=== PATIENT | female | born 1940 | race Caucasian/White ===

== ENCOUNTER 2024-01-07 15:50 | Emergency (ER) | payer OTHER, SELFPAY ==
--- NOTE | ~2024-01-07 | US_ITS ---
EXAMINATION: US VENOUS ULTRASOUND WITH DOPPLER LOWER EXTREMITY, RIGHT CLINICAL INFORMATION: Pain and swelling COMPARISON: None available. TECHNIQUE: Ultrasound of the deep veins is performed from the hip to the calf with compression sonography and color and pulse Doppler assessment. Spectral analysis with color-flow imaging is performed. FINDINGS: There is normal venous compression and respiratory variation and augmented flow. The visualized common femoral vein, superficial femoral vein, profunda femoral vein, popliteal vein, and the trifurcation region shows no evidence of deep venous thrombosis. There is no significant popliteal fossa cyst. If the patient's symptoms persist, followup ultrasound in 5 days 7 days might be of value to exclude proximal propagation from a non-visualized calf vein. US/US venous duplex LE RT IMPRESSION: No DVT demonstrated in the right lower extremity.
--- NOTE | ~2024-01-07 | XR_ITS ---
EXAMINATION: XR KNEE, RIGHT CLINICAL INFORMATION: Pain. COMPARISON: None available. TECHNIQUE: AP and lateral views of the right knee. FINDINGS: There is bony demineralization. The lateral and medial joint space compartments are well-maintained and show moderate peripheral osteophyte formation. There is marked narrowing of the patellofemoral compartment, with exuberant peripheral osteophyte formation in particular superiorly. No fracture, dislocation or significant joint effusion is seen. There is no foreign body. XR/XR knee RT 2V IMPRESSION: 1. There is tricompartment osteoarthritic change of the right knee, most pronounced of the patellofemoral compartment, where degenerative change is marked. 2. No fracture, dislocation or significant joint effusion is seen.
[2024-01-07 16:16] VITALS: BP 179/81; PULSE 101; RESP 16; TEMP 36.2; O2SAT 99; BMI 30.2
--- NOTE | 2024-01-07 16:19 | ED.GENADULT ---
HPI - General Adult General Chief complaint: Extremity Injury, Lower Stated complaint: knee pain Time Seen by Provider: 01/07/24 16:37 Source: patient Mode of arrival: ambulatory Limitations: no limitations History of Present Illness HPI narrative: 83-year-old female history of osteoarthritis of bilateral knees presents to the emergency department complaints of acute on chronic right-sided knee pain, patient reports pain has been going on for years however over the past 2 days the right knee has been more and more painful, patient reports she last had a cortisone injection to the right knee in July of 2023, she states she thinks they did it wrong, usually injections provide her more relief however this 1 did not seem to last and now she is very uncomfortable. Her knee crack every time she bends her knee. She reports pain is worse with movement better at rest. No associated trauma. Denies fevers, chills, numbness, tingling. Patient taking Tylenol without relief. Patient is ambulatory without difficulty. Related Data Home Medications ?Medication ?Instructions ?Recorded ?Confirmed atorvastatin 10 mg tablet 10 mg PO DAILY 05/15/21 levothyroxine 88 mcg tablet 88 mcg PO DAILY 05/15/21 lisinopril 5 mg tablet 5 mg PO DAILY 05/15/21 losartan 25 mg tablet 25 mg PO DAILY 05/15/21 losartan 50 mg tablet 50 mg PO DAILY 05/15/21 Previous Rx's ?Medication ?Instructions ?Recorded levofloxacin 500 mg tablet 500 mg PO DAILY #10 tabs 05/15/21 doxycycline hyclate 100 mg tablet 100 mg PO BID 7 days #14 tabs 08/30/21 acetaminophen 325 mg capsule 650 mg (2 x 325 mg) PO Q4H PRN 01/07/24 (Tylenol) pain #30 caps ibuprofen 600 mg tablet 600 mg PO Q6H PRN fever or pain 01/07/24 #30 tabs prednisone 20 mg tablet 40 mg (2 x 20 mg) PO DAILY 5 days 01/07/24 #10 tabs Allergies Allergy/AdvReac Type Severity Reaction Status Date / Time cephalexin [From Keflex] Allergy Rash Verified 01/07/24 16:19 Review of Systems Review of Systems: Yes all other systems are reviewed and are negative PMFSH Past Medical History Attestation statement: The following information was validated with the patient. Source: old records reviewed and nursing notes reviewed Social History Social History Patient Tobacco Use Status: Never used Tobacco Advance Directives: No Advance Directives Information Provided: No Do you have a plan to hurt others: No Plan Physical Exam ED Vital Signs: Vital Signs - 24 hr 01/07/24 16:16 Temperature 97.1 F Pulse Rate 101 H Respiratory Rate 16 Blood Pressure 179/81 H Pulse Oximetry 99 Oxygen Delivery Method Room Air BMI result Body Mass Index 30.2 vss Appearance: Alert.? Oriented X3.? No acute distress.? Head: Normocephalic, atraumatic, no step-offs or deformities Eyes: Pupils equal, round and reactive to light.? CVS: Normal heart rate and rhythm.? Pulses normal.? Respiratory: No respiratory distress.? Breath sounds normal.? Skin: Skin warm and dry.? Normal skin color.? Normal skin turgor.? Extremities: No lower extremity edema.? No calf ttp. 5/5 strength to bilateral upper and lower extremities + bilateral knees with full range of motion slight discomfort with rom of r knee. slight knee effusion overlying right knee. No overlying skin changes no erythema or warmth bilaterally. Patient ambulatory with steady gait normal coordination. 2+ popliteal pulses, 2+ dorsalis pedis, anterior tibialis and posterior tibialis pulses equal bilateral. Normal sensation distally. Back: No midline tenderness, no C-spine tenderness, full range of motion, no CVA tenderness bilaterally Neuro: Oriented X 3.? No motor deficit.? No sensory deficit. CN 2-12 intact Course Course Course Narrative: RME- 83-year-old female presents for evaluation of pain to her right knee. She describes the pain as burning in nature. She has pain that starts in her right lower back that radiates down her right leg. Plan for ultrasound to rule out DVT. Reevaluation(s) Reevaluation #1: Ultrasound no DVT demonstrated on right lower extremity. X-ray pending. This is likely osteoarthritis. Abdirizak wrap applied. Patient to be discharged home with pain control, prednisone, orthopedic follow-up. Educated patient on diagnosis and treatment plan, answered all question, patient verbalizes understanding. At this time patient will be discharged home, advised to return with new or worsening symptoms. Educated on worrisome signs and symptoms and when to return. At this time I feel comfortable discharge home. Time: 18:22 Medical Decision Making Medical Decision Making [facility] Narrative: 1820 83 year old female presents w/ r knee pain X years worsening over the past few months . PE- + bilateral knees with full range of motion slight discomfort with rom of r knee. slight knee effusion overlying right knee. No overlying skin changes no erythema or warmth bilaterally. Patient ambulatory with steady gait normal coordination. 2+ popliteal pulses, 2+ dorsalis pedis, anterior tibialis and posterior tibialis pulses equal bilateral. Normal sensation distally. History and physical exam concerning for osteoarthritis versus inflammatory arthritis. Unlikely arterial or venous occlusion. Unlikely acute threat to Benjamin, neurovascular compromise. Unlikely fracture, dislocation no associated trauma or falls. No signs of ischemic limb Plan will apply an Abdirizak wrap, give ibuprofen and Tylenol. Differential Diagnosis Differential Diagnoses: The differential diagnosis associated with the presentation includes History and physical exam concerning for osteoarthritis versus inflammatory arthritis. Unlikely arterial or venous occlusion. Unlikely acute threat to Benjamin, neurovascular compromise. Unlikely fracture, dislocation no associated trauma or falls. No signs of ischemic limb Admission/Observation Consideration of admission/observation: Escalation of care including admission/observation considered No indication Independent Interpretation I performed an independent interpretation of an: Plain X-Ray (pending) and Ultrasound ( US/US venous duplex LE RT IMPRESSION: No DVT demonstrated in the right lower extremity.) Radiology Impression Discussion of test interpretation with radiology: I have reviewed the radiologist's reading. Prescription Management I considered prescription management with: Pain Medication Chronic Conditions Patient?s care impacted by: Other (osteoarthritis ) Discharge Plan Discharge Clinical Impression: Knee pain Patient Disposition: Home, Self-Care Instructions: Arthralgia (ED), R.I.C.E. Treatment (ED) Additional Instructions: Take your medications as prescribed. If you were prescribed antibiotics today, it is important that you take your medication to their entirety, do not skip any doses, do not finish them early. Follow-up with your primary care provider this week. Return to the emergency department with new or worsening symptoms. Such as fevers, chills, chest pain, shortness of breath, nausea, vomiting, dizziness, headache, vision changes, lethargy In case of emergency call 911 Wear Abdirizak wrap during the day. Please remove it at night. Try to elevate your extremity as frequently as possible. Ice it for 20 minutes, do this a few times per day. Your ultrasound did not show a blood clot. I will send ibuprofen and Tylenol to your pharmacy. You can take ibuprofen every 6 hours Tylenol every 4 hours as needed for pain or discomfort. Prednisone will also be sent please take this for 5 days. Take this in the morning, taken this medicine at night can cause insomnia or difficulty sleeping. Please call the number below in follow-up with the orthopedic team. US/US venous duplex LE RT FINDINGS: There is normal venous compression and respiratory variation and augmented flow. The visualized common femoral vein, superficial femoral vein, profunda femoral vein, popliteal vein, and the trifurcation region shows no evidence of deep venous thrombosis. There is no significant popliteal fossa cyst. If the patient's symptoms persist, followup ultrasound in 5 days 7 days might be of value to exclude proximal propagation from a non-visualized calf vein. IMPRESSION: No DVT demonstrated in the right lower extremity. Prescriptions: New acetaminophen [Tylenol] 325 mg capsule 650 mg PO Q4H PRN (Reason: pain) Qty: 30 0RF ibuprofen 600 mg tablet 600 mg PO Q6H PRN (Reason: fever or pain) Qty: 30 0RF prednisone 20 mg tablet 40 mg PO DAILY 5 Days Qty: 10 0RF No Action levothyroxine 88 mcg tablet 88 mcg PO DAILY losartan 50 mg tablet 50 mg PO DAILY atorvastatin 10 mg tablet 10 mg PO DAILY losartan 25 mg tablet 25 mg PO DAILY lisinopril 5 mg tablet 5 mg PO DAILY levofloxacin 500 mg tablet 500 mg PO DAILY Qty: 10 0RF doxycycline hyclate 100 mg tablet 100 mg PO BID 7 Days Qty: 14 0RF Referrals: [facility] [Provider Group] - 2 days Archana Borges MD [Primary Care Provider] - 2 days Stand Alone Forms: Work/School Release Print Language: Kiswahili
[2024-01-07 18:49] VITALS: BP 179/81; PULSE 101; RESP 16; TEMP 36.2; O2SAT 99
[2024-01-07] MEDS: Acetaminophen 325 MG TABLET 650 MG PO (18:49)
[2024-01-07] MEDS: Ibuprofen 600 MG TABLET PO (18:49)
== END 2024-01-07 18:49 | disposition home or self-care (01) ==
PROVIDERS: Emergency Provider Emergency Medicine; PCP Internal Medicine
DX: M25.561 Pain in right knee (principal); M25.461 Effusion, right knee; M79.604 Pain in right leg
CPT/HCPCS: 73560; 93971; 99283; 99284

== ENCOUNTER 2024-02-13 08:29 | Outpatient (REF) | payer OTHER, SELFPAY ==
--- NOTE | ~2024-02-13 | XR_ITS ---
EXAMINATION: XR KNEE, LEFT CLINICAL INFORMATION: Unspecified pain COMPARISON: 01/07/2024 TECHNIQUE: Two views of the left knee. FINDINGS: Moderate narrowing of the medial joint space with marginal spurring as well as spurring of the tibial spines. No change. No fracture, dislocation or destructive process. XR/XR knee LT 2V IMPRESSION: Stable chronic moderate arthritic change.
--- NOTE | ~2024-02-13 | XR_ITS ---
EXAMINATION: XR KNEE, right CLINICAL INFORMATION: Arthritis COMPARISON: 01/07/2024 TECHNIQUE: 2 views FINDINGS: Severe narrowing of the lateral patellofemoral joint space. Marginal spurring noted. There is narrowing of the medial joint space with marginal spurring and spurring of the tibial spines. No fracture or XR/XR knee RT 1V destructive process or alignment abnormality. IMPRESSION: Arthritic changes observed with no significant change.
== END 2024-02-13 08:30 | disposition home or self-care (01) ==
LOC: HO.HOSX 08:29
PROVIDERS: Visit Provider Physician Assistant
DX: M17.0 Bilateral primary osteoarthritis of knee (principal)
CPT/HCPCS: 20610; 73560; 99202; J1010

== ENCOUNTER 2024-02-13 09:00 | Outpatient (AMB) | payer OTHER, SELFPAY ==
--- NOTE | 2024-02-13 09:12 | A.OFFVIS_ITS ---
Vital Signs 02/13/24 09:13 Height 5 ft 4 in Weight 175 lb BMI 30.0 Intake Visit Reasons: New Pt - B/L knee pain Intake Note: Olga is a 83 year old female who presents today as a new patient for a evaluation of her bilateral knee pain. Patient reports having ongoing pain for 14 months and notice it been getting worse. She has had injections in the past which didn't give her relief and she believe that they didn't administer the injection correctly per patient. Pain is focused on the medial aspect of the knee. Patient expresses that her right knee is worse that the left knee. She finds mild relief with taking ibuprofen 600 mg. Allergies cephalexin [From Keflex] Allergy (Verified 02/13/24 09:18) Rash HPI HPI New Pt - B/L knee pain: Details: 83-year-old female who presents in the office today, as a new patient, for an evaluation of bilateral knee pain. Patient presented to the ED on 01/07/2024 with a complaint of right-sided knee pain present for ?years?. Patient reported an increase in pain beginning around 01/05/2024. She claimed the pain started in her right lower back and radiated down to her right knee. Ultrasound was performed to rule out DVTs. X-rays were obtained. She was placed in an KYLEIGH wrap. She was prescribed acetaminophen 650 mg PO Q4H PRN, ibuprofen 600 mg PO Q6H PRN, and prednisone 40 mg PO daily with 10 tablets. While in the office today the patient reports having ongoing pain for 14 months, which has been increasing. She reports her pain is mainly on the medial aspect of the bilateral knees, with the right knee being worse than the left knee. She finds mild relief with the use of ibuprofen 600 mg. Patient reported a cortisone injection in the right knee in 07/2023 with no relief. However, she states she did not feel this was administered correctly. [facility] Social History Patient Tobacco Use Status: Never used Tobacco Review of Systems Const All systems reviewed & are unremarkable except as noted in HPI and below Physical Exam Vital Signs: BMI result Body Mass Index 30.0 Const General: cooperative and no acute distress Orientation/consciousness: patient oriented x3 Resp Effort & Inspection: normal respiratory effort and able to speak in complete sentences Cardio Peripheral pulses: Peripheral pulses 2+ throughout Skin General skin exam: no rashes or lesions noted Neuro General: patient oriented x3 Extrem Other: Bilateral knees: Normal to inspection. No ecchymosis, erythema, or joint effusion. No tenderness to palpation along the medial or lateral joint lines. Full knee extension and flexion. Crepitus felt with ROM. NVI. Office Procedures Joint Injection/Drain Joint Injection/Drain Primary Site: right knee Prep: site was prepped using aseptic technique, ethochloride spray was applied and injection warnings given Injected: 80 mg of, DepoMedrol, with 8 mL of (2% plain lido ) and in the joint Approach Used: anterolateral Procedure: The patient tolerated the procedure well, but had some pain with the injection and there was some relief with the local anesthesia Coding 63764 - Large joint Procedure code (CPT) selection complete Assessment & Plan Assessment & Plan (1) Osteoarthritis of right knee: Code(s): M17.11 - Unilateral primary osteoarthritis, right knee Category: Medical (2) Osteoarthritis of left knee: Code(s): M17.12 - Unilateral primary osteoarthritis, left knee Category: Medical Plan Ms. Babcock is a 83-year-old female who presents in the office today, as a new patient, for an evaluation of bilateral knee pain. Patient presented to the ED on 01/07/2024 with a complaint of right-sided knee pain present for ?years?. Patient reported an increase in pain beginning around 01/05/2024. She claimed the pain started in her right lower back and radiated down to her right knee. Ultrasound was performed to rule out DVTs. X-rays were obtained. She was placed in an KYLEIGH wrap. She was prescribed acetaminophen 650 mg PO Q4H PRN, ibuprofen 600 mg PO Q6H PRN, and prednisone 40 mg PO daily with 10 tablets. While in the office today the patient reports having ongoing pain for 14 months, which has been increasing. She reports her pain is mainly on the medial aspect of the bilateral knees, with the right knee being worse than the left knee. She finds mild relief with the use of ibuprofen 600 mg. Patient reported a cortisone injection in the right knee in 07/2023 with no relief. However, she states she did not feel this was administered correctly. The patient was offered a cortisone injection in the right knee with 80 mg of DepoMedrol. The patient was explained the risk, benefits, and alternatives to receiving this injection. After receiving consent for the injection, the patient had the procedure done while in the office today. The patient tolerated the procedure well with no complications. We also discussed the role of gel injections which the patient would like to move forward with. The office will petition the insurance for approval. Follow- up will be after approval for the gel injections are obtained, or sooner if needed. X-rays of the bilateral knees which were obtained while in the office today and were reviewed by me, Dea Harrison PA-C, revealed bilateral osteoarthritis, with the right knee being severe. X-rays of the right knee, obtained on 01/07/2024, revealed: 1. There is tri-compartment osteoarthritic change of the right knee, most pronounced of the patellofemoral compartment, where degenerative change is marked. 2. No fracture, dislocation or significant joint effusion is seen. Ultrasound of the right lower extremity, obtained on 01/07/2024, revealed: No DVT demonstrated in the right lower extremity. Orders: Orders XR knee RT 1V Today M25.569 - Pain in unspecified knee XR knee LT 2V Today M25.569 - Pain in unspecified knee Patient Instructions: Scribed by Kayleigh Quan, bilingual medical receptionist, for Dea Harrison PA-C on 02/13/2024 at 9:04 am, EST. Coding Level of Care Code New Pt Level 4 (06301) Diagnoses Osteoarthritis of right knee M17.11 Osteoarthritis of left knee M17.12 CPT Codes Coding - 72080 Large joint: 07368 - Large joint ([id number])
== END 2024-02-13 09:57 | disposition home or self-care (01) ==
PROVIDERS: PCP Internal Medicine; Visit Provider Physician Assistant
DX: M17.0 Bilateral primary osteoarthritis of knee (principal)
CPT/HCPCS: 20610; 99204

== ENCOUNTER 2024-06-29 15:18 | Outpatient (AMB) | payer OTHER, SELFPAY ==
--- NOTE | 2024-06-29 15:30 | A.OFFVIS_ITS ---
Intake Visit Reasons: OV, R knee OA inj 02/13/24, has l knee pain Intake Note: Olga is a 83 year old male who presents to the office today for R knee OA inj 02/13/24. Pt states she is having left knee pain. Patient repots last injection provided her with relief. She has concerns of painful spasms that travels from her right side buttock and radiates down her leg and stiffness in her calf. No previous. pain last for about 3 days. Denies numbness and tingling. States having ache in bilateral knee at night. Her right knee causes her the most discomfort. Allergies cephalexin [From Keflex] Allergy (Verified 06/29/24 15:41) Rash HPI HPI OV, R knee OA inj 02/13/24, has l knee pain : Details: 83-year-old male who presents in the office today for a follow-up of right knee osteoarthritis. I last saw the patient in the office on 02/13/24 when she was given a cortisone injection in the right knee. We also discussed the role of gel injection. The office filed a petition for Euflexxa injection to get covered by insurance. While in the office today, the patient reports left knee pain. She reports her last cortisone injection provided her with relief. She mentions achiness in the bilateral knees that is prevalent at night. She mentions having discomfort that is more in her right knee. She denies any numbness or tingling sensations. She has additional concerns regarding painful spasms that radiated from her right side of buttock and traveled down her right lower extremity with stiffness in her right calf. The pain lasted for about 3 days. ON LICENSE OF [facility] Social History Patient Tobacco Use Status: Never used Tobacco Review of Systems Const All systems reviewed & are unremarkable except as noted in HPI and below Physical Exam Const General: cooperative, healthy appearing and no acute distress Resp Effort & Inspection: normal respiratory effort and able to speak in complete sentences Cardio Rate: regular rate Peripheral pulses: Peripheral pulses 2+ throughout GI Palpation (GI): Soft to palpation Skin Lesions: no lesions Rashes: no rashes Extrem Other: Bilateral knees: Normal to inspection. No ecchymosis, erythema, or joint effusion. No tenderness to palpation along the medial or lateral joint lines. Full knee extension and flexion. Crepitus is felt with ROM. NVI. Office Procedures Joint Injection/Aspiration Joint Injection/Aspiration Primary Site: right knee Secondary Site: left knee Prep: site was prepped using aseptic technique, ethochloride spray was applied and injection warnings given Injected: 80 mg of, DepoMedrol, with 8 mL of (2% plain lido ) and in the joint Approach Used: anterolateral Procedure: The patient tolerated the procedure well, but had some pain with the injection and there was some relief with the local anesthesia Coding 54880 - Large joint Procedure code (CPT) selection complete Assessment & Plan Assessment & Plan (1) Osteoarthritis of left knee: Code(s): M17.12 - Unilateral primary osteoarthritis, left knee Category: Medical (2) Osteoarthritis of right knee: Code(s): M17.11 - Unilateral primary osteoarthritis, right knee Category: Medical (3) Sciatica: Code(s): M54.30 - Sciatica, unspecified side Category: Medical Plan 83-year-old male who presents in the office today for a follow-up of right knee osteoarthritis. I last saw the patient in the office on 02/13/24 when she was given a cortisone injection in the right knee. We also discussed the role of gel injection. The office filed a petition for Euflexxa injection to get covered by insurance. While in the office today, the patient reports left knee pain. She reports her l ast cortisone injection provided her with relief. She mentions achiness in the bilateral knees that is prevalent at night. She mentions having discomfort that is more in her right knee. She denies any numbness or tingling sensations. She has additional concerns regarding painful spasms that radiated from her right side of buttock and traveled down her right lower extremity with stiffness in her right calf. The pain lasted for about 3 days. The patient was offered a cortisone injection in the bilateral knees with 80 mg of Depo-Medrol. The patient was explained the risks, benefits, and alternatives to receiving this injection. After receiving consent for the injection, the patient had the procedure done while in the office today. The patient tolerated the procedure well with no complication. The patient was referred to Dr. Caballero for further evaluation and treatment. Follow-up will be PRN with Orthopedics, or sooner if needed. X-rays of the right knee, obtained on 01/07/24, revealed: 1. There is tricompartment osteoarthritic change of the right knee, most pronounced of the patellofemoral compartment, where degenerative change is marked. 2. No fracture, dislocation or significant joint effusion is seen. X-rays of the right knee, obtained on 02/13/24, revealed:Stable chronic moderate arthritic change X-rays of the left knee, obtained on 02/13/24, revealed: Destructive process or alignment abnormality. Arthritic changes observed with no significant change. Patient Instructions: Scribed by Megan Reyes, claim review medical director, for Dea Harrison PA-C on 06/29/24 at 4:21 pm EST. Coding Level of Care Code Est Pt Level 3 (44756) Diagnoses Osteoarthritis of left knee M17.12 Osteoarthritis of right knee M17.11 Sciatica M54.30 CPT Codes Coding - 60905 Large joint: 60440 - Large joint ([id number])
== END 2024-06-29 16:09 | disposition home or self-care (01) ==
PROVIDERS: PCP Internal Medicine; Visit Provider Physician Assistant
DX: M17.0 Bilateral primary osteoarthritis of knee (principal); M54.30 Sciatica, unspecified side
CPT/HCPCS: 20610; 99213

== ENCOUNTER → 2024-06-29 15:18 | Outpatient (BNVA) | payer OTHER, SELFPAY | PROVIDERS: PCP Internal Medicine; Visit Provider Physician Assistant | DX: M17.0 Bilateral primary osteoarthritis of knee (principal); M54.30 Sciatica, unspecified side | CPT/HCPCS: 20610; 99212; J1010; J2003 ==

== ENCOUNTER 2024-07-09 10:49 | Outpatient (REF) | payer OTHER, SELFPAY | END 2024-07-09 10:50 | disposition home or self-care (01) | LOC: HO.HOSX 10:49 | PROVIDERS: PCP Internal Medicine; Visit Provider Physical Medicine & Rehabilitation | DX: M25.551 Pain in right hip (principal); M54.9 Dorsalgia, unspecified; M53.3 Sacrococcygeal disorders, not elsewhere classified; G57.01 Lesion of sciatic nerve, right lower limb; M70.61 Trochanteric bursitis, right hip | CPT/HCPCS: 72100; 73502; 99202 ==

== ENCOUNTER 2024-07-09 10:49 | Outpatient (AMB) | payer OTHER, SELFPAY ==
--- NOTE | 2024-07-09 10:58 | A.OFFVIS_ITS ---
Vital Signs 07/09/24 11:04 Height 5 ft 4 in Weight 176 lb BMI 30.2 Intake Visit Reasons: NewProb- RT side sciatica shooting pain Intake Note: This is an 83 year old patient who presents for right sided sciatic pain. She reports that the pain has been going on for a year. It has been intermittent, she uses ice and heat and then the pain goes away for a few days and then comes back. Allergies cephalexin [From Keflex] Allergy (Verified 07/09/24 11:00) Rash Medication List - Last Reconciled 07/09/24 by Lisa Clark, ÁNGEL acetaminophen (Tylenol) 650 mg (2 x 325 mg) PO Q4H PRN atorvastatin 10 mg PO DAILY doxycycline hyclate 100 mg PO BID 7 days ibuprofen 600 mg PO Q6H PRN levofloxacin 500 mg PO DAILY levothyroxine 88 mcg PO DAILY lisinopril 5 mg PO DAILY losartan 25 mg PO DAILY losartan 50 mg PO DAILY metformin ER 500 mg PO DAILY prednisone 40 mg (2 x 20 mg) PO DAILY 5 days HPI Comments Details: Patient follows with orthopedics for left knee, received injection steroid last 06/30/24. She mentioned spasms to [facility] and therefore referred to Physiatry. At least 1 year. No falls/inciting injuries. Starts on the right hip, all the way down to calf. Has tried ice and hips. Thinks related to mattress. Occurs twice a week, could last 3 days. Last was 3 weeks ago. No past imaging. [facility] Social History Patient Tobacco Use Status: Never used Tobacco Review of Systems Const All systems reviewed & are unremarkable except as noted in HPI and below Physical Exam Vital Signs: BMI result Body Mass Index 30.2 Constitutional: Patient appears to be in no acute distress, well nourished and well developed. Patient was appropriately conversant and oriented. Good historian. MSK: No specific abnormalities found on inspection of the spine and all extremities. There is some tenderness over right SI joint, piriformis and sensitivity in right GT. Lumbar ROM was full. Neurological: Neurologic examination of the upper and lower extremities was nonfocal with intact sensation, muscle stretch reflexes and without focal motor deficits . Dukes?s negative bilaterally. Babinski was down going bilaterally. Clonus was negative. Gait is non-antalgic without loss of balance. Results Reviewed Results Reviewed: I reviewed records from the following: Ortho Assessment & Plan Assessment & Plan (1) Right hip pain: Code(s): M25.551 - Pain in right hip Category: Medical (2) Sacroiliac joint dysfunction of right side: Code(s): M53.3 - Sacrococcygeal disorders, not elsewhere classified Category: Medical (3) Piriformis syndrome of right side: Code(s): G57.01 - Lesion of sciatic nerve, right lower limb Category: Medical (4) Greater trochanteric bursitis of right hip: Code(s): M70.61 - Trochanteric bursitis, right hip Category: Medical Plan Complaining of random episodic spasms on right lower extremity, from right hip down to calf. Last episode was 3 weeks ago. Differentials include SI joint versus piriformis versus trochanteric bursitis. However patient does not have p ain today. No indication for injection today, and she just had a knee injection 2 weeks ago. We decided to wait until she has another episode. I would be happy to see her in the office in the event that she is having an episode. Patient to call our office. We will do lumbar and hip x-rays today. Assessment and plan discussed with patient, and patient was agreeable. All questions were answered thoroughly. Annalisa Rodgers MD, JACK Board Certified, [place] [employer] and [employer] (ABPMR) Board Certified, [place] [employer] (ABEM) Orders: Orders XR hip RT min 2V Today M25.551 - Pain in right hip XR lumbar spine 2-3V Today M54.9 - Dorsalgia, unspecified Coding Level of Care Code New Pt Level 4 (05667) Diagnoses Right hip pain M25.551 Sacroiliac joint dysfunction of right side M53.3 Piriformis syndrome of right side G57.01 Greater trochanteric bursitis of right hip M70.61
[2024-07-09 11:04] VITALS: BMI 30.2
== END 2024-07-09 12:19 | disposition home or self-care (01) ==
LOC: HO.HOS 10:50
PROVIDERS: PCP Internal Medicine; Visit Provider Physical Medicine & Rehabilitation
DX: M25.551 Pain in right hip (principal); M53.3 Sacrococcygeal disorders, not elsewhere classified; G57.01 Lesion of sciatic nerve, right lower limb; M70.61 Trochanteric bursitis, right hip
CPT/HCPCS: 99203